=== PATIENT | male | born 1995 | race Caucasian/White ===

== ENCOUNTER 2016-12-06 20:07 | Emergency (ER) | payer OTHER ==
[2016-12-06] MEDS ORDERED: Ibuprofen 400 MG TAB ONE (22:05)
[2016-12-06] MEDS ORDERED: CYCLOBENZAPRINE 10 MG TAB ONE (22:05)
== END 2016-12-06 22:43 | disposition home or self-care (01) ==
LOC: ER 20:07
CPT/HCPCS: 71020; 72050